=== PATIENT | female | born 2000 | race Caucasian/White ===

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

== ENCOUNTER 2020-07-16 23:26 | Emergency (ER) | payer BC ==
[~2020-07-16] VITALS: Ht 165.1 cm; Wt 56.0 kg
[2020-07-16] MEDS ORDERED: AZATHIOPRINE50 MG PO (23:40)
[2020-07-16] MEDS ORDERED: PEPCID40 MG PO (23:41)
--- NOTE | 2020-07-17 13:50 | EKG ---
[facility] [address] [facility] [place] [address] Signed Normal sinus rhythm Normal ECG When compared with ECG of 14-DEC-2018 23:41, Vent. rate has decreased BY 38 BPM Confirmed by UBALDO WHITTEN MD ([id number]) on 07/17/2020 1:50:20 PM Electronically Signed By: UBALDO WHITTEN MD 07/17/20 1350 PATIENT NAME: JOSY BURNETT [facility] Electrocardiogram DATE OF : 00 PHYSICIAN: UBALDO WHITTEN MD REPORT #: [id number] REPORT IS CONFIDENTIAL AND NOT TO BE RELEASED WITHOUT AUTHORIZATION
== END 2020-07-17 01:19 | disposition home or self-care (01) ==
LOC: ED 23:26
DX: R07.2 Precordial pain (principal); J45.909 Unspecified asthma, uncomplicated; Z88.2 Allergy status to sulfonamides; Z88.1 Allergy status to other antibiotic agents; Z88.8 Allergy status to other drugs, medicaments and biological substances; Z79.899 Other long term (current) drug therapy; Z88.0 Allergy status to penicillin
CPT/HCPCS: 71045; 80053; 84484; 85025; 85379; 93005; 93010; 99285-25

== ENCOUNTER 2021-02-21 02:14 | Emergency (ER) | payer BC ==
[~2021-02-21] VITALS: Ht 165.1 cm; Wt 56.7 kg
[~2021-02-21 02:14] MED LIST changes: +AZATHIOPRINE50 MG PO; +PEPCID40 MG PO
[2021-02-21] MEDS ORDERED: LEVOTHYROXINE50 MCG (02:47)
[2021-02-21] MEDS ORDERED: AZASAN75 MG PO (02:51)
[2021-02-21] MEDS ORDERED: LEVOTHYROXINE25 MC1 PO (02:52)
[2021-02-21] MEDS ORDERED: VITAMIN D325 MCG PO (02:53)
--- NOTE | 2021-02-21 18:11 | EKG ---
[facility] [address] [facility] [place] [address] Signed Sinus tachycardia T wave abnormality, consider inferior ischemia Abnormal ECG When compared with ECG of 06-NOV-2018 10:08, Vent. rate has increased BY 48 BPM T wave inversion now evident in Inferior leads Nonspecific T wave abnormality now evident in Lateral leads Confirmed by BETZY SULTANA MD ([id number]) on 02/21/2021 6:11:33 PM Electronically Signed By: BETZY SULTANA MD 02/21/211810 PATIENT NAME: JOSY BURNETT Electrocardiogram DATE OF : 00 PHYSICIAN: BETZY SULTANA MD REPORT #: [id number] REPORT IS CONFIDENTIAL AND NOT TO BE RELEASED WITHOUT AUTHORIZATION
== END 2021-02-21 03:47 | disposition home or self-care (01) ==
LOC: ED 02:14
DX: R07.2 Precordial pain (principal); J45.909 Unspecified asthma, uncomplicated; Z88.8 Allergy status to other drugs, medicaments and biological substances; Z88.2 Allergy status to sulfonamides; Z88.1 Allergy status to other antibiotic agents; Z79.899 Other long term (current) drug therapy
CPT/HCPCS: 71046; 80053; 84484; 85025; 85379; 93005; 93010; 99285-25

== ENCOUNTER 2021-06-10 02:15 | Emergency (ER) | payer OTHER ==
[~2021-06-10] VITALS: Ht 165.1 cm; Wt 56.0 kg
[~2021-06-10 02:15] MED LIST changes: +AZASAN75 MG PO; +LEVOTHYROXINE25 MC1 PO; +LEVOTHYROXINE50 MCG; +VITAMIN D325 MCG PO
--- NOTE | 2021-06-10 22:09 | EKG ---
[facility] [address] [facility] [place] [address] Signed Normal sinus rhythm with sinus arrhythmia Normal ECG When compared with ECG of 21-FEB-2021 02:22, Vent. rate has decreased BY 57 BPM T wave inversion no longer evident in Inferior leads Nonspecific T wave abnormality no longer evident in Lateral leads Confirmed by BETZY SULTANA MD ([id number]) on 06/10/2021 8:23:18 PM Electronically Signed By: BETZY SULTANA MD 06/10/21 2209 PATIENT NAME: JOSY BURNETT Electrocardiogram DATE OF : 00 PHYSICIAN: BETZY SULTANA MD REPORT #: [id number] REPORT IS CONFIDENTIAL AND NOT TO BE RELEASED WITHOUT AUTHORIZATION
== END 2021-06-10 03:52 | disposition home or self-care (01) ==
LOC: ED 02:15
DX: R07.89 Other chest pain (principal); E03.9 Hypothyroidism, unspecified; J45.909 Unspecified asthma, uncomplicated; Z88.8 Allergy status to other drugs, medicaments and biological substances; Z88.0 Allergy status to penicillin; Z88.1 Allergy status to other antibiotic agents; Z79.899 Other long term (current) drug therapy; Z20.822 Contact with and (suspected) exposure to COVID-19
CPT/HCPCS: 36415; 71045; 80048; 84484; 84703; 85025; 99284-25; U0003

== ENCOUNTER 2021-08-05 22:03 | Emergency (ER) | payer OTHER ==
[~2021-08-05] VITALS: Ht 165.1 cm; Wt 55.8 kg
[2021-08-05] MEDS ORDERED: NAPROXEN375 MG PO (22:21)
== END 2021-08-06 00:25 | disposition home or self-care (01) ==
LOC: ED 22:03
DX: G43.109 Migraine with aura, not intractable, without status migrainosus (principal); E03.9 Hypothyroidism, unspecified; J45.909 Unspecified asthma, uncomplicated; Z88.8 Allergy status to other drugs, medicaments and biological substances; Z88.2 Allergy status to sulfonamides; Z88.1 Allergy status to other antibiotic agents; Z88.0 Allergy status to penicillin; Z79.899 Other long term (current) drug therapy
CPT/HCPCS: 70450; 99284-25; J7030

== ENCOUNTER 2021-09-20 01:34 | Emergency (ER) | payer OTHER ==
[~2021-09-20] VITALS: Ht 165.1 cm; Wt 56.7 kg
[~2021-09-20 01:34] MED LIST changes: +NAPROXEN375 MG PO
--- OUTSIDE RECORDS SUMMARY | 2021-09-20 01:40 | XMS ---
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 - 3 Facilities in 90 Days - [facility] - 2 Visits in 30 Days CARE PROVIDERS RUBEN JOVEL Obstetrics \T\ Gynecology: Maternal \T\ Medicine Current PHONE: [phone] Liu Eid Community Health Worker 12/12/2018-Current PHONE: [phone] FRED MORENO [facility] Current PHONE: Unknown DAVID ROE Internal Medicine: Pulmonary Disease 09/11/2018-Current PHONE: Unknown Juliana has no Care Guidelines for this patient. Care History Medical/Surgical 09/11/2018 [facility] - Patient is currently established with [facility]. If patient is seen in the ED during business hours. Please contact CHWs at [facility]. Care Recommendation: This patient has had 5 [...] care. E.D. VISIT COUNT (12 MO.) 2 [facility] 1 [facility] 4 [facility]. TOTAL 7 NOTE: Visits indicate total known visits. ED/UCC VISIT TRACKING (12 MO.) 09/20/2021 01:34 [facility] [place] TYPE: Emergency COMPLAINT: - FLANK PAIN 08/29/2021 04:22 [facility] TYPE: Emergency DIAGNOSES: 544[address]. Carotid artery swelling \E\T\E\ chest pain 59[address]. Cervicalgia 08/20/2021 16:54 [facility] [place] TYPE: Emergency DIAGNOSES: - CHEST PAIN DIFFICULTY BREATHING PROBLEMS WITH INFLAMMATION - Cardiac murmur, unspecified - Other chest pain 08/05/2021 22:04 [facility] [place] TYPE: Emergency COMPLAINT: - HEAD PRESSURE, RIGHT SIDE FACIAL NUMBNESS DIAGNOSES: - Allergy status to other antibiotic agents - Unspecified asthma, uncomplicated - Migraine with aura, not intractable, without status migrainosus - Allergy status to sulfonamides - Migraine, unspecified, not intractable, without status migrainosus - Other snf (current) drug therapy - Hypothyroidism, unspecified - Migraine with aura, not intractable, without status migrainosus - Allergy status to penicillin - Allergy status to other drugs, medicaments and biological substances 06/10/2021 02:15 [facility] [place] TYPE: Emergency COMPLAINT: - NECK AND CHEST PAIN DIAGNOSES: - Allergy status to penicillin - Other sprayer machine (current) drug therapy - Unspecified asthma, uncomplicated - Hypothyroidism, unspecified - Allergy status to other drugs, medicaments and biological substances - Other chest pain - Allergy status to other antibiotic agents 02/21/2021 02:14 [facility] [place] TYPE: Emergency COMPLAINT: - CHEST PAIN DIAGNOSES: - Unspecified asthma, uncomplicated - Allergy status to sulfonamides - Precordial pain - Allergy status to other antibiotic agents - Other sprayer machine (current) drug therapy - Allergy status to other drugs, medicaments and biological substances 11/12/2020 18:59 [facility] [place] TYPE: Emergency DIAGNOSES: - ABD PAIN NAUSEA RAPID HEART RATE - Nonspecific mesenteric lymphadenitis INPATIENT VISIT TRACKING (12 MO.) No inpatient visits to display in this time frame [email or web address]
[2021-09-20] MEDS ORDERED: CEPHALEXIN500 M1 PO (02:52)
== END 2021-09-20 03:57 | disposition home or self-care (01) ==
LOC: ED 01:34
DX: N39.0 Urinary tract infection, site not specified (principal); E03.9 Hypothyroidism, unspecified; J45.909 Unspecified asthma, uncomplicated; Z88.8 Allergy status to other drugs, medicaments and biological substances; Z88.2 Allergy status to sulfonamides; Z88.1 Allergy status to other antibiotic agents; Z88.0 Allergy status to penicillin; Z79.899 Other long term (current) drug therapy
CPT/HCPCS: 36415; 74176; 80048; 81001; 84703; 85025; 96365; 99284-25; J0696

== ENCOUNTER 2021-11-06 03:33 | Emergency (ER) | payer OTHER ==
[~2021-11-06] VITALS: Ht 165.1 cm; Wt 56.7 kg
[~2021-11-06 03:33] MED LIST changes: +CEPHALEXIN500 M1 PO
--- OUTSIDE RECORDS SUMMARY | 2021-11-06 03:40 | XMS ---
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 - 3 Facilities in 90 Days CARE PROVIDERS RUBEN JOVEL Obstetrics \T\ Gynecology: Maternal \T\ Medicine Current PHONE: Unknown Liu Eid Community Health Worker 12/12/2018-Current PHONE: [phone] FRED MORENO [facility] Current PHONE: Unknown DAVID ROE Internal Medicine: Pulmonary Disease 09/11/2018-Current PHONE: Unknown Juliana has no Care Guidelines for this patient. Care History Medical/Surgical 09/11/2018 [facility] - Patient is currently established with [facility]. If patient is seen in the ED during business hours. Please contact CHWs at [facility]. Care Recommendation: This patient has had [...] care. E.D. VISIT COUNT (12 MO.) 2 [facility] 1 [facility] 6 [facility]. TOTAL 9 NOTE: Visits indicate total known visits. ED/UCC VISIT TRACKING (12 MO.) 11/06/2021 03:33 [facility] [place] TYPE: Emergency COMPLAINT: - DIFFICULTY BREATHING/SWALLOWING 09/27/2021 11:18 [facility] [place] TYPE: Emergency COMPLAINT: - ABDOMINAL PAIN DIAGNOSES: - Unspecified asthma, uncomplicated - Hypothyroidism, unspecified - Allergy status to penicillin - Allergy status to sulfonamides - Unspecified abdominal pain - Dorsalgia, unspecified - Allergy status to other antibiotic agents 09/20/2021 01:34 [facility] [place] TYPE: Emergency COMPLAINT: - FLANK PAIN DIAGNOSES: - Unspecified asthma, uncomplicated - Allergy status to penicillin - Allergy status to other antibiotic agents - Urinary tract infection, site not specified - Hypothyroidism, unspecified - Allergy status to other drugs, medicaments and biological substances - Other sql data architect (current) drug therapy - Unspecified abdominal pain - Allergy status to sulfonamides 08/29/2021 04:22 [facility] TYPE: Emergency DIAGNOSES: 57[address]. Carotid artery swelling \E\T\E\ chest pain [address]33[address]. Cervicalgia 08/20/2021 16:54 [facility] TYPE: Emergency DIAGNOSES: - CHEST PAIN DIFFICULTY [...] not intractable, without status migrainosus - Other sql data architect (current) drug therapy - Hypothyroidism, unspecified - Migraine with aura, not intractable, without status migrainosus - Allergy status to penicillin - Allergy status to other drugs, medicaments and biological substances 06/10/2021 02:15 [facility] [place] TYPE: Emergency COMPLAINT: - NECK AND CHEST PAIN DIAGNOSES: - Allergy status to penicillin - Other sql data architect (current) drug therapy - Unspecified asthma, uncomplicated [...] status to other antibiotic agents - Other sql data architect (current) drug therapy - Allergy status to other drugs, medicaments and biological substances 11/12/2020 18:59 [facility] [place] TYPE: Emergency DIAGNOSES: - ABD PAIN NAUSEA RAPID HEART RATE - Nonspecific mesenteric lymphadenitis INPATIENT VISIT TRACKING (12 MO.) No inpatient visits to display in this time frame [id number]
[2021-11-06] MEDS ORDERED: COLCHICINE0.6 M1 PO (03:42)
== END 2021-11-06 05:59 | disposition home or self-care (01) ==
LOC: ED 03:33
DX: R20.2 Paresthesia of skin (principal); R13.10 Dysphagia, unspecified; J45.909 Unspecified asthma, uncomplicated; E03.9 Hypothyroidism, unspecified; Z88.1 Allergy status to other antibiotic agents; Z88.0 Allergy status to penicillin; Z88.2 Allergy status to sulfonamides; Z88.8 Allergy status to other drugs, medicaments and biological substances
CPT/HCPCS: 36415; 80053; 81001; 84703; 85025

== ENCOUNTER 2021-11-26 01:30 | Emergency (ER) | payer OTHER ==
[~2021-11-26] VITALS: Ht 165.1 cm; Wt 57.1 kg
--- NOTE | ~2021-11-26 | EKG ---
[facility] [address] [facility] [place], [place] [address] Draft EK completed, results pending confirmation PATIENT NAME: JOSY BURNETT HENRY Electrocardiogram DATE OF : 1 PHYSICIAN: PRELIMINARY REPORT #: [id number] REPORT IS CONFIDENTIAL AND NOT TO BE RELEASED WITHOUT AUTHORIZATION
[~2021-11-26 01:30] MED LIST changes: +COLCHICINE0.6 M1 PO
--- OUTSIDE RECORDS SUMMARY | 2021-11-26 01:38 | XMS ---
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 Care History Medical/Surgical 09/11/2018 [facility] - Patient is currently established with [facility]. If patient is seen in the ED during business hours. Please contact CHWs at [facility]. Care Recommendation: This patient has had 5 [...] providing care. E.D. VISIT COUNT (12 MO.) 4 [facility] 1 [facility] and [facility] 7 [facility]. TOTAL 12 NOTE: Visits indicate total known visits. ED/UCC VISIT TRACKING (12 MO.) 11/26/2021 01:31 [facility] [place] TYPE: Emergency COMPLAINT: - CHEST PAIN 11/15/2021 00:07 [place] TYPE: Emergency DIAGNOSES: - Cervicalgia - FACIAL NUMBNESS SOB WEAKNESS - Nontoxic single thyroid nodule - Dysphagia, unspecified - Paresthesia of skin 11/11/2021 02:03 [place] TYPE: Emergency DIAGNOSES: - Adverse effect of glucocorticoids and synthetic analogues, initial encounter - Dizziness and giddiness - rapid heart rate 11/09/2021 14:27 [place] TYPE: Emergency DIAGNOSES: - Allergy, unspecified, initial encounter - NECK PAIN DIFFICULTY SWALLOWING 11/06/2021 03:33 [facility] [place] TYPE: Emergency COMPLAINT: - DIFFICULTY BREATHING/SWALLOWING DIAGNOSES: - Dysphagia, unspecified - Paresthesia of skin - Unspecified asthma, uncomplicated - Allergy status to other drugs, medicaments and biological substances - Hypothyroidism, unspecified - Allergy status to other antibiotic agents - Allergy status to sulfonamides - Allergy status to penicillin 09/27/2021 11:18 [facility] [place] TYPE: Emergency [...] drugs, medicaments and biological substances - 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 Carotid artery swelling \E\T\E\ chest pain 15303. Cervicalgia 08/20/2021 16:54 [facility] TYPE: Emergency DIAGNOSES: - CHEST PAIN DIFFICULTY BREATHING PROBLEMS WITH INFLAMMATION - Cardiac murmur, unspecified - Other chest pain 08/05/2021 22: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 - Hypothyroidism, unspecified - Migraine with aura, not intractable, without status migrainosus - Allergy status to penicillin - Allergy status to other drugs, medicaments and biological substances 06/10/2021 02:15 [facility] [place] TYPE: Emergency COMPLAINT: - NECK AND CHEST PAIN DIAGNOSES: - Allergy status to penicillin - Other mcfp (current) drug therapy - Unspecified asthma, uncomplicated - Hypothyroidism, unspecified - Allergy status to other drugs, medicaments and biological substances - Other chest pain - Allergy status to other antibiotic agents - Contact with and (suspected) exposure to COVID-19 02/21/2021 02:14 [facility] [place] TYPE: Emergency COMPLAINT: - CHEST PAIN DIAGNOSES: - Unspecified asthma, uncomplicated - Allergy status to sulfonamides - Precordial pain - Allergy status to other antibiotic agents - Other mcfp (current) drug therapy - Allergy status to other drugs, medicaments and biological substances INPATIENT VISIT TRACKING (12 MO.) No inpatient visits to display in this time frame [id number]
== END 2021-11-26 03:08 | disposition home or self-care (01) ==
LOC: ED 01:30
DX: R07.89 Other chest pain (principal); E03.9 Hypothyroidism, unspecified; J45.909 Unspecified asthma, uncomplicated; Z88.8 Allergy status to other drugs, medicaments and biological substances; Z88.2 Allergy status to sulfonamides; Z88.1 Allergy status to other antibiotic agents; Z88.0 Allergy status to penicillin; Z79.899 Other long term (current) drug therapy
CPT/HCPCS: 36415; 71045; 80053; 84484; 85025; 93005; 93010; 99285-25

== ENCOUNTER 2021-12-20 01:03 | Emergency (ER) | payer OTHER ==
[~2021-12-20] VITALS: Ht 165.1 cm; Wt 57.1 kg
--- OUTSIDE RECORDS SUMMARY | 2021-12-20 01:10 | XMS ---
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 Care History Medical/Surgical 09/11/2018 [facility] - Patient is currently established with [facility]. If patient is seen in the ED during business hours. Please contact CHWs at [facility]. Care Recommendation: This patient has [...] care. E.D. VISIT COUNT (12 MO.) 4 [facility] 5 [facility] 1 [facility] 1 [facility] 8 [facility]. TOTAL 19 NOTE: Visits indicate total known visits. ED/UCC VISIT TRACKING (12 MO.) 12/20/2021 01:03 [facility] TYPE: Emergency COMPLAINT: - WEAKNESS 12/18/2021 20:08 [facility] TYPE: Emergency DIAGNOSES: - Cervicalgia - Facial Numbness, chest pain - Fatigue - Other fatigue 12/16/2021 21:31 [facility] TYPE: Emergency DIAGNOSES: - Cervicalgia - Chest pain, unspecified - Dysphagia, unspecified - chest pain - Other chest pain 12/13/2021 16:02 [facility] [place] TYPE: Emergency DIAGNOSES: - Rash - Localized swelling, mass and lump, head - Rash and other nonspecific skin eruption - Multiple Medical Problems 12/12/2021 23:30 [facility] [place] TYPE: Emergency DIAGNOSES: - allergic reaction - Weakness - alergic reaction 12/10/2021 17:07 [facility] [place] TYPE: Emergency DIAGNOSES: - Anesthesia of skin - allergic reaction - Localized swelling, mass and lump, head 12/06/2021 22:37 [facility] [place] TYPE: Emergency DIAGNOSES: - Palpitations - Hypokalemia - Chest pain, unspecified - Chest Pain - Dizziness and giddiness - Extremity Weakness 11/26/2021 01:31 [facility] [place] TYPE: Emergency COMPLAINT: - CHEST PAIN DIAGNOSES: - Allergy status to other antibiotic agents - 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 - Allergy status to penicillin - Allergy status to sulfonamides - Palpitations - Hypothyroidism, unspecified - Unspecified asthma, uncomplicated - Other chest pain - Allergy status to other drugs, medicaments and biological substances 11/15/2021 00:07 [facility] [place] TYPE: Emergency DIAGNOSES: - FACIAL NUMBNESS SOB WEAKNESS - Paresthesia of skin - Nontoxic single thyroid nodule - Cervicalgia - Dysphagia, unspecified 11/11/2021 02:03 [email or web address] [place] TYPE: Emergency DIAGNOSES: - Dizziness and giddiness - rapid heart rate - Adverse effect of glucocorticoids and synthetic analogues, initial encounter 11/09/2021 14:27 [email or web address] [place] TYPE: Emergency DIAGNOSES: - NECK PAIN DIFFICULTY SWALLOWING - Allergy, unspecified, initial encounter 11/06/2021 03:33 [facility] [place] TYPE: Emergency COMPLAINT: - DIFFICULTY BREATHING/SWALLOWING DIAGNOSES: - Paresthesia of skin - Allergy status to sulfonamides - Hypothyroidism, unspecified - Unspecified asthma, uncomplicated - Dysphagia, unspecified - Allergy status to penicillin - Allergy status to other antibiotic agents - Allergy status to other drugs, medicaments and biological substances 09/27/2021 11:18 [facility] [place] TYPE: Emergency COMPLAINT: - ABDOMINAL PAIN DIAGNOSES: - Hypothyroidism, unspecified - Allergy status to other antibiotic agents - Unspecified abdominal pain - Allergy status to penicillin - Unspecified asthma, uncomplicated - Dorsalgia, unspecified - Allergy status to sulfonamides 09/20/2021 01:34 [facility] [place] TYPE: Emergency COMPLAINT: - FLANK PAIN DIAGNOSES: - Allergy status to penicillin - Allergy status to sulfonamides - 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 TYPE: Emergency DIAGNOSES: 71915. Carotid artery swelling \E\T\E\ chest pain 20947. Cervicalgia 08/20/2021 16:54 [facility] TYPE: Emergency DIAGNOSES: - Cardiac murmur, unspecified - Other chest pain - CHEST PAIN DIFFICULTY BREATHING PROBLEMS WITH INFLAMMATION 08/05/2021 22: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 - Allergy status to sulfonamides 06/10/2021 02:15 [facility] [place] TYPE: Emergency COMPLAINT: - NECK AND CHEST PAIN DIAGNOSES: - Other skilled nursing (current) drug therapy - Allergy status to other antibiotic agents - Allergy status to other drugs, medicaments and biological substances - Unspecified asthma, uncomplicated - Allergy status to penicillin - Contact with and (suspected) exposure to COVID-19 - Other chest pain - Hypothyroidism, unspecified 02/21/2021 02:14 [facility] [place] TYPE: Emergency COMPLAINT: - CHEST PAIN DIAGNOSES: - Allergy status to sulfonamides - Other skilled nursing (current) drug therapy - Precordial pain - Unspecified asthma, uncomplicated - Allergy status to other drugs, medicaments and biological substances - Allergy status to other antibiotic agents INPATIENT VISIT TRACKING (12 MO.) No inpatient visits to display in this time frame [email or web address]
== END 2021-12-20 03:14 | disposition home or self-care (01) ==
LOC: ED 01:03
DX: R41.82 Altered mental status, unspecified (principal); R41.0 Disorientation, unspecified; E03.9 Hypothyroidism, unspecified; J45.909 Unspecified asthma, uncomplicated; Z88.1 Allergy status to other antibiotic agents; Z88.2 Allergy status to sulfonamides; Z88.0 Allergy status to penicillin; Z88.8 Allergy status to other drugs, medicaments and biological substances; Z79.899 Other long term (current) drug therapy
CPT/HCPCS: 36415; 51701; 70450; 80053; 81001; 84484; 85025; 99285-25; G0480

== ENCOUNTER 2021-12-30 23:55 | Emergency (ER) | payer OTHER ==
[~2021-12-30] VITALS: Ht 165.1 cm; Wt 56.9 kg
--- OUTSIDE RECORDS SUMMARY | 2021-12-31 00:04 | XMS ---
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 Care History Medical/Surgical 09/11/2018 [facility] - Patient is currently established with [facility]. If patient is seen in the ED during business hours. Please contact CHWs at [facility]. Care Recommendation: This patient has had [...] care. E.D. VISIT COUNT (12 MO.) [facility] 5 [facility] 1 [facility] 1 [facility] [address] [facility]. TOTAL 20 NOTE: Visits indicate total known visits. 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 [place] [facility]: [facility] DIAGNOSES: - Chest pain, unspecified - Dysphagia, unspecified - chest pain - Other chest pain - Cervicalgia 12/13/2021 16:02 [facility] [place] TYPE: Emergency DIAGNOSES: - Localized swelling, mass and lump, head - Rash and other nonspecific skin eruption - Multiple Medical Problems - Rash 12/12/2021 23:30 [facility] [place] TYPE: Emergency DIAGNOSES: - Weakness - alergic reaction - allergic reaction 12/10/2021 17:07 [facility] [place] TYPE: Emergency DIAGNOSES: - allergic reaction - Localized swelling, mass and lump, head - Anesthesia of skin 12/06/2021 22:37 [facility] [place] TYPE: Emergency DIAGNOSES: - Hypokalemia - Chest pain, unspecified - Chest Pain - Dizziness and giddiness - Extremity Weakness - Palpitations 11/26/2021 01:31 [facility] TYPE: Emergency COMPLAINT: - CHEST PAIN DIAGNOSES: - Allergy status to sulfonamides - Palpitations - Hypothyroidism, unspecified - Unspecified asthma, uncomplicated - Other chest pain - Allergy status to other drugs, medicaments and biological substances - Allergy status to other antibiotic agents - Other fpc (current) drug therapy - Allergy status to penicillin 11/15/2021 00:07 [facility] [place] TYPE: Emergency DIAGNOSES: - Paresthesia of skin - Nontoxic single thyroid nodule - Cervicalgia - Dysphagia, unspecified - FACIAL NUMBNESS SOB WEAKNESS 11/11/2021 02:03 [facility] [place] TYPE: Emergency DIAGNOSES: - rapid heart rate - Adverse effect of glucocorticoids and synthetic analogues, initial encounter - Dizziness and giddiness 11/09/2021 14:27 [facility] [place] TYPE: Emergency DIAGNOSES: - Allergy, unspecified, initial encounter - NECK PAIN DIFFICULTY SWALLOWING 11/06/2021 03:33 [facility] [place] TYPE: Emergency COMPLAINT: - DIFFICULTY BREATHING/SWALLOWING DIAGNOSES: - Hypothyroidism, unspecified - Unspecified asthma, uncomplicated - Dysphagia, unspecified - Allergy status to penicillin - Allergy status to other antibiotic agents - Allergy status to other drugs, medicaments and biological substances - Paresthesia of skin - Allergy status to sulfonamides 09/27/2021 11:18 [facility] [place] TYPE: Emergency COMPLAINT: - ABDOMINAL PAIN DIAGNOSES: - Unspecified abdominal pain - Allergy status to penicillin - Unspecified asthma, uncomplicated - Dorsalgia, unspecified - Allergy status to sulfonamides - Hypothyroidism, unspecified - Allergy status to other antibiotic agents 09/20/2021 01:34 [facility] [place] TYPE: Emergency COMPLAINT: - FLANK PAIN DIAGNOSES: - Hypothyroidism, unspecified - Allergy status to other antibiotic agents - Unspecified asthma, uncomplicated - Unspecified abdominal pain - Allergy status to other drugs, medicaments and biological substances - Urinary tract infection, site not specified - Allergy status to penicillin - Allergy status to sulfonamides - Other fpc (current) drug therapy 08/29/2021 04:[address] [facility] TYPE: Emergency DIAGNOSES: 64003. Carotid artery swelling \E\T\E\ chest pain 92961. Cervicalgia 08/20/2021 16:54 [facility] [place] TYPE: Emergency DIAGNOSES: - Other chest pain - CHEST PAIN DIFFICULTY BREATHING PROBLEMS WITH INFLAMMATION - Cardiac murmur, unspecified 08/05/2021 22:04 [facility] [place] TYPE: Emergency COMPLAINT: - HEAD PRESSURE, RIGHT SIDE FACIAL NUMBNESS DIAGNOSES: - Migraine, unspecified, not intractable, without status migrainosus - Migraine with aura, not intractable, without status migrainosus - Allergy status to other drugs, medicaments and biological substances - Allergy status to other antibiotic agents - Migraine with aura, not intractable, without status migrainosus - Other fpc (current) drug therapy - Allergy status to sulfonamides - Unspecified asthma, uncomplicated - Allergy status to penicillin - Hypothyroidism, unspecified [facility]10[facility]2021 [facility] [place] [facility] COMPLAINT: - NECK AND CHEST PAIN DIAGNOSES: - Allergy status to other drugs, medicaments and biological substances - Unspecified asthma, uncomplicated - Allergy status to penicillin - Contact with and (suspected) exposure to COVID-19 - Other chest pain - Hypothyroidism, unspecified - Other fpc (current) drug therapy - Allergy status to other antibiotic agents 02/21/2021 02:[address] 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
[2021-12-31] MEDS ORDERED: SINGULAIR10 MG PO (00:06)
== END 2021-12-31 00:30 | disposition home or self-care (01) ==
LOC: ED 23:55
DX: L29.9 Pruritus, unspecified (principal); J45.909 Unspecified asthma, uncomplicated; E03.9 Hypothyroidism, unspecified; Z88.8 Allergy status to other drugs, medicaments and biological substances; Z88.1 Allergy status to other antibiotic agents; Z88.0 Allergy status to penicillin; Z79.899 Other long term (current) drug therapy
CPT/HCPCS: 36415; 99283